=== PATIENT | female | born 1975 | race Two or more races ===

== ENCOUNTER → 2016-03-27 | Outpatient (CLI) | payer OTHER ==
--- NOTE | 2016-03-27 11:32 | DX ---
Chest, PA and Lateral History: Chest pain when coughing, acute bronchitis, systemic lupus , J20.9 Findings: Lungs are clear, without infiltrate or consolidation. Heart size is normal. There is no casimiro nopathy or mass lesion. There is no pleural effusion, pneumomediastinum or pneumothorax. There is a m ild upper thoracic scoliosis. There are mild T7 and T8 compressions, probably old, considering the ad jacent marginal disk space osteophyte formation. Bones are otherwise normal for age. Impression: Nothing acute identified.
== END ==
LOC: BRMIMAGING 08:50
PROVIDERS: ATTEND Internal Medicine Rheumatology
DX: R07.89 Other chest pain (principal); R05 Cough; M32.9 Systemic lupus erythematosus, unspecified
CPT/HCPCS: 71020-PO